=== PATIENT | female | born 1945 | race Caucasian/White ===

== ENCOUNTER 2017-08-05 19:28 | Inpatient (IN) | payer MEDICARE, OTHER ==
[~2017-08-05] VITALS: Ht 162.6 cm; Wt 69.1 kg
[~2017-08-05 19:28] MED LIST: CALC-1197 PO; CHOL10002 PO; CPM; ENOX40SY7 SUBCUT; ESTR1TAB28 PO; MAGN400C PO; OMEP-271 PO; TRAM50TA2 PO; TRAZ-143 PO; VIT B
[2017-08-05] MEDS ORDERED: aspirin 81mg tab.chew PO ONE (19:40)
[2017-08-05 19:53] LABS: BASOPHILS % (AUTO) 0.5 % (0-1); EOSINOPHILS % (AUTO) 0.6 % (0-6); HEMATOCRIT 42.2 % (35.0-45.0); HEMOGLOBIN 14.5 g/dl (12.0-16.0); LYMPHOCYTES % (AUTO) 41.2 % (21-51); MEAN CORPUSCULAR HEMOGLOBIN 31.4 PG (27.0-31.0); MEAN CORPUSCULAR HGB CONC 34.3 % (33.0-36.5); MEAN CORPUSCULAR VOLUME 91.5 FL (78-98); MEAN PLATELET VOLUME 8.3 FL (7.4-10.4); MONOCYTES # (AUTO) 0.5 X10'3 (0-0.9); MONOCYTES % (AUTO) 10.4 % (2-12); NEUTROPHILS # (AUTO) 2.3 X10'3 (1.8-7.7); NEUTROPHILS % (AUTO) 47.3 % (42-75); PLATELET COUNT 175 X10'3 (140-440); RED BLOOD COUNT 4.62 X10'6 (4.20-5.60); RED CELL DISTRIBUTION WIDTH 13.4 % (11.5-14.5); WHITE BLOOD COUNT 4.9 X10'3 (4.5-11.0)
[2017-08-05 20:06] LABS: INR 0.9 INR; PARTIAL THROMBOPLASTIN TIME 26 SECONDS (22-32); PROTHROMBIN TIME 9.8 SECONDS (9.0-12.0)
[2017-08-05 20:09] LABS: ALANINE AMINOTRANSFERASE 21 U/L (12-78); ALBUMIN 3.9 G/DL (3.4-5.0); ALBUMIN/GLOBULIN RATIO 1.2 (1.1-1.5); ALKALINE PHOSPHATASE 47 IU/L (46-116); ANION GAP 8 (8-16); ASPARTATE AMINO TRANSFERASE 19 U/L (10-37); BILIRUBIN,TOTAL 0.3 MG/DL (0.1-1.0); BLOOD UREA NITROGEN 22 MG/DL (7-18); BUN/CREATININE RATIO 16.4 (6.6-38.0); CALCIUM 8.8 MG/DL (8.5-10.1); CHLORIDE 107 MMOL/L (99-107); CREATININE 1.34 MG/DL (0.40-0.90); GLUCOSE 95 MG/DL (70-104); POTASSIUM 3.8 MMOL/L (3.5-5.1); SODIUM 141 MMOL/L (135-145); TOTAL CARBON DIOXIDE 25.7 MMOL/L (24-32); TOTAL PROTEIN 7.2 G/DL (6.4-8.2); eGFR 39 ML/MIN
[2017-08-05] MEDS ORDERED: ondansetron/PF 4mg/2ml inj IV ONE (21:00)
[2017-08-05] MEDS ORDERED: enoxaparin 100mg/ml syringe SUBCUT ONE (22:40)
[2017-08-05] MEDS ORDERED: ondansetron/PF 4mg/2ml inj IV PRN (22:40)
[2017-08-05] MEDS ORDERED: metoprolol tartrate 1mg/ml inj IV PRN (22:45)
[2017-08-05] MEDS ORDERED: regadenoson 0.4mg/5ml syringe IV ONE (22:45)
[2017-08-05] MEDS ORDERED: nitroGLYCERIN 0.4mg SUBLingual tab SL PRN (22:45)
[2017-08-05] MEDS ORDERED: aminophylline 250mg/10ml inj. IV PRN (22:45)
[2017-08-05] MEDS ORDERED: normal saline 1000ml 1,000 ML IV ONE (22:45)
[2017-08-05] MEDS ORDERED: traZODone 50mg tablet PO SCH (23:15)
[2017-08-06] VITALS (8 sets, daily range): BP systolic 123–160; BP diastolic 66–90
[2017-08-06] MEDS ORDERED: aspirin 325mg tablet PO SCH (08:30)
[2017-08-06 08:49] LABS: ANION GAP 7 (8-16); BLOOD UREA NITROGEN 17 MG/DL (7-18); BUN/CREATININE RATIO 13.7 (6.6-38.0); CALCIUM 8.2 MG/DL (8.5-10.1); CHLORIDE 111 MMOL/L (99-107); CREATININE 1.24 MG/DL (0.40-0.90); GLUCOSE 83 MG/DL (70-104); POTASSIUM 4.1 MMOL/L (3.5-5.1); SODIUM 143 MMOL/L (135-145); TOTAL CARBON DIOXIDE 24.9 MMOL/L (24-32); eGFR 43 ML/MIN
[2017-08-06 08:50] LABS: ALBUMIN 3.3 G/DL (3.4-5.0)
[2017-08-06 08:56] LABS: BASOPHILS % (AUTO) 0.6 % (0-1); HEMOGLOBIN 13.2 g/dl (12.0-16.0); LYMPHOCYTES # (AUTO) 1.2 X10'3 (1.1-4.8); LYMPHOCYTES % (AUTO) 37.5 % (21-51); MEAN CORPUSCULAR HEMOGLOBIN 30.9 PG (27.0-31.0); MEAN CORPUSCULAR HGB CONC 33.9 % (33.0-36.5); MEAN CORPUSCULAR VOLUME 91.2 FL (78-98); MEAN PLATELET VOLUME 8.6 FL (7.4-10.4); MONOCYTES # (AUTO) 0.4 X10'3 (0-0.9); MONOCYTES % (AUTO) 11.3 % (2-12); NEUTROPHILS # (AUTO) 1.6 X10'3 (1.8-7.7); NEUTROPHILS % (AUTO) 49.6 % (42-75); PLATELET COUNT 149 X10'3 (140-440); RED BLOOD COUNT 4.27 X10'6 (4.20-5.60); RED CELL DISTRIBUTION WIDTH 13.5 % (11.5-14.5); WHITE BLOOD COUNT 3.2 X10'3 (4.5-11.0)
[2017-08-06] MEDS ORDERED: regadenoson 0.4mg/5ml syringe IV ONE (09:08)
[2017-08-06] MEDS ORDERED: aminophylline inj. 0 ML IV ONE (09:08)
[2017-08-06] MEDS ORDERED: OMEP40CA37 PO (13:40)
[2017-08-06] MEDS ORDERED: CELE-193 PO (13:40)
== END 2017-08-06 14:00 | disposition home or self-care (01) | DRG 554 ==
LOC: ER 19:29 → ED HOLD 22:37 → PCU 3S 08-06 10:23
PROVIDERS: ADMIT Internal Medicine; ATTEND Family Medicine
PROC: 4A02XM4 Measurement of Cardiac Total Activity, External Approach (ICD-10-PCS; principal; 2017-08-06)
PROC: 3E073KZ Introduction of Other Diagnostic Substance into Coronary Artery, Percutaneous Approach (ICD-10-PCS; 2017-08-06)
DX: M19.012 Primary osteoarthritis, left shoulder (principal); N17.9 Acute kidney failure, unspecified; G89.29 Other chronic pain; E86.0 Dehydration; I10 Essential (primary) hypertension; N18.9 Chronic kidney disease, unspecified; J45.909 Unspecified asthma, uncomplicated; Z90.710 Acquired absence of both cervix and uterus; Z88.0 Allergy status to penicillin; Z88.6 Allergy status to analgesic agent; Z88.1 Allergy status to other antibiotic agents; Z88.8 Allergy status to other drugs, medicaments and biological substances
CPT/HCPCS: 36415; 71045; 78452; 80048; 80053; 84484; 85025; 85610; 85730; 87070; 93005; 93017; 96372; 96374; 99285; A9500; J0280; J1650; J2270; J2405; J7030

== ENCOUNTER 2017-08-18 10:01 | Inpatient (IN) | payer MEDICARE, OTHER ==
[2017-08-13 12:05] LABS: CLARITY,URINE Clear (Clear); COLOR,URINE Yellow (Yellow); GLUCOSE, URINE Negative (Neg); KETONES,URINE Negative (Neg); LEUKOCYTE ESTERASE ,URINE Negative (Neg); NITRITES, URINE Negative (Neg); OCCULT BLOOD,URINE Negative (Neg); PH,URINE 5.5 (4.8-8.0); PROTEIN,URINE Negative (Neg)
[2017-08-13 12:06] LABS: UA COLLECTION TYPE NON-SPECIFIED
[~2017-08-18] VITALS: Ht 165.1 cm; Wt 70.4 kg
[2017-08-18] VITALS (17 sets, daily range): BP systolic 96–132; BP diastolic 58–89
[~2017-08-18 10:01] MED LIST changes: +CELE-193 PO; -CPM; -ENOX40SY7 SUBCUT; -OMEP-271 PO; +OMEP40CA37 PO; -TRAZ-143 PO; +TRAZ300T2 PO; +celeCOXIB 100mg capsule PO ONE; +clindamycin-Cleocin 900mg/D5W 50 ML IV ONE; +famotidine 20mg tablet PO ONE; +gabapentin 300mg capsule PO ONE; +metoclopramide 5 mg/ml inj IV ONE; +oxyCODONE SR 10mg (sust. release) tab PO ONE; +ringers solution, lacted 1,000 ML IV SCH; +tranexamic acid inj. 1,000 MG in normal saline 100ml IV soln 90 ML IV ONE
[2017-08-18] MEDS ORDERED: DONE5TAB7 PO (11:30)
[2017-08-18] MEDS ORDERED: [UNRECOGNIZED DRUG - OTHER] (11:34)
[2017-08-18] MEDS ORDERED: COLLAGEN TYPE (11:34)
[2017-08-18] MEDS ORDERED: INSTAFLEX (11:34)
[2017-08-18] MEDS ORDERED: ROPIVAcaine 0.5% (5mg/ml) 30ml vial ONE (13:07)
[2017-08-18] MEDS ORDERED: epiNEPHrine 1 mg/ml inj ONE (13:07)
[2017-08-18] MEDS ORDERED: ketorolac trometh. 30mg/ml inj. ONE ×2 (13:07→15:19)
[2017-08-18] MEDS ORDERED: sevoflurane 250ml liquid IH ONE (13:28)
[2017-08-18] MEDS ORDERED: fentaNYL /PF 50mcg/ml 5ml ampule ONE (13:34)
[2017-08-18] MEDS ORDERED: propofol inj 20 ML IV ONE (13:45)
[2017-08-18] MEDS ORDERED: dexamethasone sod phosphate 4mg/ml inj. ONE (13:45)
[2017-08-18] MEDS ORDERED: diphenhydrAMINE 50 mg/ml inj ONE (13:46)
[2017-08-18] MEDS ORDERED: ondansetron/PF 4mg/2ml inj ONE (13:46)
[2017-08-18] MEDS ORDERED: labetalol 5mg/ml 20ml inj. IV ONE (14:13)
[2017-08-18] MEDS ORDERED: hydrALAZINE 20mg/ml inj. IV ONE (14:17)
[2017-08-18] MEDS ORDERED: ringers solution, lacted 1,000 ML IV SCH (14:19)
[2017-08-18] MEDS ORDERED: fentaNYL/PF 50MCG/1 ML 2ML syringe IV PRN (14:20)
[2017-08-18] MEDS ORDERED: ondansetron/PF 4mg/2ml inj IV PRN ×2 (14:20→16:15)
[2017-08-18] MEDS ORDERED: hydrALAZINE 20mg/ml inj. IV PRN (14:20)
[2017-08-18] MEDS ORDERED: labetalol 5mg/ml 20ml inj. IV PRN (14:20)
[2017-08-18] MEDS ORDERED: HYDROmorphone 1 mg/ml syringe IV PRN ×2 (16:15)
[2017-08-18] MEDS ORDERED: bisacodyl 10mg suppository rectal RC PRN (16:15)
[2017-08-18] MEDS ORDERED: magnesium hydroxide 30ml (MOM) UD suspension PO PRN (16:15)
[2017-08-18] MEDS ORDERED: acetaminophen 325mg tablet PO PRN (16:15)
[2017-08-18] MEDS ORDERED: diphenhydrAMINE 25mg capsule PO PRN ×2 (16:15)
[2017-08-18] MEDS: fentaNYL/PF 50MCG/1 ML 2ML syringe IV PRN ×2 (16:16→16:45)
[2017-08-18] MEDS ORDERED: CADD PCA waste documentation MC PRN (17:00)
[2017-08-18] MEDS ORDERED: naloxone 0.4 mg/ml inj IV PRN (17:00)
[2017-08-18] MEDS: HYDROmorphone/NS 1 mg/ml CADD 50 ML IV SCH ×4 (17:07→23:00)
[2017-08-18] MEDS: potassium cl 20mEq in 1/2 NS 1,000 ML IV SCH (18:11)
[2017-08-18] MEDS: ascorbic acid 500mg tablet PO SCH (20:00)
[2017-08-18] MEDS: celeCOXIB 100mg capsule PO SCH (20:00)
[2017-08-18] MEDS: oxyCODONE IR 5mg (immed. release) tablet PO SCH (20:00)
[2017-08-19] VITALS (8 sets, daily range): BP systolic 102–128; BP diastolic 65–81
[2017-08-19] MEDS: clindamycin-Cleocin 900mg/D5W 50 ML IV SCH ×3 (00:06→15:37)
[2017-08-19] MEDS: donepezil 5mg tablet PO SCH ×2 (00:13→21:00)
[2017-08-19] MEDS: sennosides 8.6mg tablet PO SCH ×2 (00:14→21:00)
[2017-08-19] MEDS: HYDROmorphone/NS 1 mg/ml CADD 50 ML IV SCH ×4 (01:00→07:00)
[2017-08-19] MEDS: potassium cl 20mEq in 1/2 NS 1,000 ML IV SCH (01:55)
[2017-08-19 06:16] LABS: BASOPHILS % (AUTO) 0.1 % (0-1); EOSINOPHILS # (AUTO) 0.1 X10'3 (0-0.9); EOSINOPHILS % (AUTO) 1.1 % (0-6); HEMATOCRIT 35.6 % (35.0-45.0); LYMPHOCYTES # (AUTO) 0.6 X10'3 (1.1-4.8); LYMPHOCYTES % (AUTO) 7.2 % (21-51); MEAN CORPUSCULAR HEMOGLOBIN 30.9 PG (27.0-31.0); MEAN CORPUSCULAR HGB CONC 33.8 % (33.0-36.5); MEAN CORPUSCULAR VOLUME 91.6 FL (78-98); MONOCYTES # (AUTO) 0.5 X10'3 (0-0.9); MONOCYTES % (AUTO) 6.4 % (2-12); NEUTROPHILS # (AUTO) 7.2 X10'3 (1.8-7.7); NEUTROPHILS % (AUTO) 85.2 % (42-75); PLATELET COUNT 145 X10'3 (140-440); RED BLOOD COUNT 3.88 X10'6 (4.20-5.60); RED CELL DISTRIBUTION WIDTH 13.3 % (11.5-14.5); WHITE BLOOD COUNT 8.5 X10'3 (4.5-11.0)
[2017-08-19] MEDS: oxyCODONE IR 5mg (immed. release) tablet PO SCH ×6 (06:35→20:40)
[2017-08-19 06:53] LABS: ANION GAP 6 (8-16); CHLORIDE 102 MMOL/L (99-107); POTASSIUM 4.3 MMOL/L (3.5-5.1); SODIUM 135 MMOL/L (135-145); TOTAL CARBON DIOXIDE 26.9 MMOL/L (24-32)
[2017-08-19] MEDS: enoxaparin 40mg/0.4ml syringe SQ SCH (07:37)
[2017-08-19] MEDS: ascorbic acid 500mg tablet PO SCH ×2 (07:38→21:03)
[2017-08-19] MEDS: pantoprazole 40mg Tablet.DR PO SCH (07:38)
[2017-08-19] MEDS: multivitamins, therapeutics tablet PO SCH (07:38)
[2017-08-19] MEDS: estradiol 1mg tablet PO SCH (07:39)
[2017-08-19] MEDS: celeCOXIB 100mg capsule PO SCH ×2 (08:21→20:50)
[2017-08-19] MEDS: oxyCODONE IR 5mg (immed. release) tablet PO PRN ×2 (09:49→21:07)
[2017-08-20] MEDS: oxyCODONE IR 5mg (immed. release) tablet PO PRN ×3 (00:46→09:25)
[2017-08-20 00:51] VITALS: BP 136/85
[2017-08-20 06:00] VITALS: BP 152/86
[2017-08-20 07:31] LABS: BASOPHILS % (AUTO) 0.2 % (0-1); EOSINOPHILS % (AUTO) 0.4 % (0-6); HEMATOCRIT 32.6 % (35.0-45.0); HEMOGLOBIN 11.6 g/dl (12.0-16.0); LYMPHOCYTES # (AUTO) 1.5 X10'3 (1.1-4.8); LYMPHOCYTES % (AUTO) 30.7 % (21-51); MEAN CORPUSCULAR HEMOGLOBIN 32.2 PG (27.0-31.0); MEAN CORPUSCULAR HGB CONC 35.5 % (33.0-36.5); MEAN CORPUSCULAR VOLUME 90.8 FL (78-98); MEAN PLATELET VOLUME 8.9 FL (7.4-10.4); MONOCYTES # (AUTO) 0.7 X10'3 (0-0.9); MONOCYTES % (AUTO) 13.4 % (2-12); NEUTROPHILS # (AUTO) 2.7 X10'3 (1.8-7.7); NEUTROPHILS % (AUTO) 55.3 % (42-75); PLATELET COUNT 120 X10'3 (140-440); RED BLOOD COUNT 3.59 X10'6 (4.20-5.60); RED CELL DISTRIBUTION WIDTH 12.9 % (11.5-14.5); WHITE BLOOD COUNT 4.9 X10'3 (4.5-11.0)
[2017-08-20] MEDS: estradiol 1mg tablet PO SCH (08:23)
[2017-08-20] MEDS: pantoprazole 40mg Tablet.DR PO SCH (08:23)
[2017-08-20] MEDS: ascorbic acid 500mg tablet PO SCH (08:24)
[2017-08-20] MEDS: enoxaparin 40mg/0.4ml syringe SQ SCH (08:24)
[2017-08-20] MEDS: multivitamins, therapeutics tablet PO SCH (08:24)
[2017-08-20] MEDS: celeCOXIB 100mg capsule PO SCH (09:25)
== END 2017-08-20 10:05 | disposition home or self-care (01) | DRG 470 ==
LOC: PAS IN 11:01 → EDSTATUS 14:00 → ORTHO 4S 17:24
PROVIDERS: ADMIT Orthopaedic Surgery; ATTEND Orthopaedic Surgery
PROC: 0SRD0J9 Replacement of Left Knee Joint with Synthetic Substitute, Cemented, Open Approach (ICD-10-PCS; principal; 2017-08-18 13:26)
DX: M17.12 Unilateral primary osteoarthritis, left knee (principal); D62 Acute posthemorrhagic anemia; N18.3 Chronic kidney disease, stage 3 (moderate); G89.4 Chronic pain syndrome; J45.909 Unspecified asthma, uncomplicated; K21.9 Gastro-esophageal reflux disease without esophagitis; R41.3 Other amnesia; Z96.651 Presence of right artificial knee joint; Z88.6 Allergy status to analgesic agent; Z88.0 Allergy status to penicillin; Z88.1 Allergy status to other antibiotic agents; Z88.8 Allergy status to other drugs, medicaments and biological substances; Z79.899 Other long term (current) drug therapy; Z79.82 Long term (current) use of aspirin
CPT/HCPCS: 36415; 73560; 80051; 81003; 85025; 86885; 86900; 86901; 87070; 97116; 97530; A6255; A6455; A7000; C1713; C1758; C1776; J0171; J0360; J1100; J1170; J1200; J1650; J1885; J2270; J2405; J2704; J2765; J2795; J3010; J3490; J7030; J7120; Q0163

== ENCOUNTER 2018-01-22 08:39 | Emergency (ER) | payer MEDICARE, OTHER ==
[~2018-01-22] VITALS: Ht 165.1 cm; Wt 68.6 kg
[~2018-01-22 08:39] MED LIST changes: -CALC-1197 PO; -CELE-193 PO; -CHOL10002 PO; +COLLAGEN TYPE; +DONE5TAB7 PO; +INSTAFLEX; -MAGN400C PO; -OMEP40CA37 PO; -VIT B; +[UNRECOGNIZED DRUG - OTHER]; -celeCOXIB 100mg capsule PO ONE; -clindamycin-Cleocin 900mg/D5W 50 ML IV ONE; -famotidine 20mg tablet PO ONE; -gabapentin 300mg capsule PO ONE; -metoclopramide 5 mg/ml inj IV ONE; -oxyCODONE SR 10mg (sust. release) tab PO ONE; -ringers solution, lacted 1,000 ML IV SCH; -tranexamic acid inj. 1,000 MG in normal saline 100ml IV soln 90 ML IV ONE
[2018-01-22 08:42] VITALS: BP 141/88
[2018-01-22] MEDS ORDERED: traMADol 50MG tablet PO ONE (10:45)
[2018-01-22] MEDS ORDERED: TRAM50TA2 PO (11:30)
== END 2018-01-22 11:48 | disposition home or self-care (01) ==
LOC: ER 08:39
DX: M75.32 Calcific tendinitis of left shoulder (principal); I10 Essential (primary) hypertension; J45.909 Unspecified asthma, uncomplicated; G89.29 Other chronic pain; Z90.710 Acquired absence of both cervix and uterus; Z98.890 Other specified postprocedural states; Z88.0 Allergy status to penicillin; Z88.8 Allergy status to other drugs, medicaments and biological substances; Z79.899 Other long term (current) drug therapy
CPT/HCPCS: 73030; 99284

== ENCOUNTER 2018-12-22 16:39 | Emergency (ER) | payer MEDICARE, OTHER ==
[~2018-12-22] VITALS: Ht 165.1 cm; Wt 79.5 kg
[2018-12-22 17:08] VITALS: BP 138/82
--- NOTE | 2018-12-22 18:40 | NUR ---
LAURA BUCIO AT BEDSIDE WITH PT
[2018-12-22] MEDS: traMADol 50MG tablet PO ONE (19:00)
== END 2018-12-22 19:47 | disposition home or self-care (01) ==
LOC: ER 16:40
DX: S82.892A Other fracture of left lower leg, initial encounter for closed fracture (principal); S83.92XA Sprain of unspecified site of left knee, initial encounter; I10 Essential (primary) hypertension; J45.909 Unspecified asthma, uncomplicated; G89.29 Other chronic pain; Z90.710 Acquired absence of both cervix and uterus; Z98.890 Other specified postprocedural states; Z88.8 Allergy status to other drugs, medicaments and biological substances; Z88.0 Allergy status to penicillin; Z88.1 Allergy status to other antibiotic agents; Z79.899 Other long term (current) drug therapy; V89.2XXA Person injured in unspecified motor-vehicle accident, traffic, initial encounter; Y93.89 Activity, other specified; Y92.89 Other specified places as the place of occurrence of the external cause; Y99.8 Other external cause status
CPT/HCPCS: 29515; 73564; 73610; 99283

== ENCOUNTER 2018-12-24 11:32 | Emergency (ER) | payer MEDICARE, OTHER ==
[~2018-12-24] VITALS: Ht 165.1 cm; Wt 72.7 kg
[2018-12-24] MEDS ORDERED: traMADol 50MG tablet PO ONE (13:40)
[2018-12-24] MEDS ORDERED: TRAM50TA2 PO (13:46)
[2018-12-24 14:12] VITALS: BP 137/74
== END 2018-12-24 14:00 | disposition home or self-care (01) ==
LOC: ER 11:33
DX: M25.572 Pain in left ankle and joints of left foot (principal); I10 Essential (primary) hypertension; J45.909 Unspecified asthma, uncomplicated; G89.29 Other chronic pain; Z90.710 Acquired absence of both cervix and uterus; Z98.890 Other specified postprocedural states; Z88.0 Allergy status to penicillin; Z88.1 Allergy status to other antibiotic agents; Z88.6 Allergy status to analgesic agent; Z88.8 Allergy status to other drugs, medicaments and biological substances; Z79.899 Other long term (current) drug therapy
CPT/HCPCS: 99283

== ENCOUNTER 2019-01-17 09:46 | Emergency (ER) | payer MEDICARE, OTHER ==
[~2019-01-17] VITALS: Ht 165.1 cm; Wt 72.7 kg
[2019-01-17 10:10] VITALS: BP 137/85
== END 2019-01-17 11:11 | disposition home or self-care (01) ==
LOC: ER 09:47
DX: D22.62 Melanocytic nevi of left upper limb, including shoulder (principal); I10 Essential (primary) hypertension; J45.909 Unspecified asthma, uncomplicated; G89.29 Other chronic pain; Z79.899 Other long term (current) drug therapy; Z88.0 Allergy status to penicillin; Z88.1 Allergy status to other antibiotic agents; Z88.4 Allergy status to anesthetic agent; Z88.6 Allergy status to analgesic agent; Z90.710 Acquired absence of both cervix and uterus; Z98.890 Other specified postprocedural states
CPT/HCPCS: 99281

== ENCOUNTER 2019-11-13 10:08 | Emergency (ER) | payer MEDICARE, BC ==
[~2019-11-13] VITALS: Ht 162.6 cm; Wt 80.0 kg
[2019-11-13 10:41] LABS: BASOPHILS % (AUTO) 0.4 % (0-1); EOSINOPHILS % (AUTO) 0.3 % (0-6); HEMATOCRIT 44.7 % (35.0-45.0); LYMPHOCYTES # (AUTO) 1.4 X10'3 (1.1-4.8); LYMPHOCYTES % (AUTO) 33.6 % (21-51); MEAN CORPUSCULAR HEMOGLOBIN 30.8 PG (27.0-31.0); MEAN CORPUSCULAR HGB CONC 33.7 g/dL (33.0-36.5); MEAN CORPUSCULAR VOLUME 91.4 FL (78-98); MEAN PLATELET VOLUME 8.6 FL (7.4-10.4); MONOCYTES # (AUTO) 0.4 X10'3 (0-0.9); NEUTROPHILS # (AUTO) 2.3 X10'3 (1.8-7.7); NEUTROPHILS % (AUTO) 55.7 % (42-75); PLATELET COUNT 160 X10'3 (140-440); RED BLOOD COUNT 4.89 X10'6 (4.20-5.60); RED CELL DISTRIBUTION WIDTH 13.9 % (11.5-14.5); WHITE BLOOD COUNT 4.1 X10'3 (4.5-11.0)
[2019-11-13 10:53] LABS: ALANINE AMINOTRANSFERASE 18 U/L (12-78); ALBUMIN 4.1 G/DL (3.4-5.0); ALBUMIN/GLOBULIN RATIO 1.2 (1.1-1.5); ALKALINE PHOSPHATASE 33 IU/L (46-116); ANION GAP 8 (8-16); ASPARTATE AMINO TRANSFERASE 24 U/L (10-37); BILIRUBIN,TOTAL 0.7 MG/DL (0.1-1.0); BLOOD UREA NITROGEN 19 MG/DL (7-18); BUN/CREATININE RATIO 15.7 (6.6-38.0); CALCIUM 9.1 MG/DL (8.5-10.1); CHLORIDE 107 MMOL/L (99-107); CREATININE 1.21 MG/DL (0.40-0.90); D-DIMER 0.59 MG/L FEU (0-0.50); GLUCOSE 85 MG/DL (70-104); POTASSIUM 3.9 MMOL/L (3.5-5.1); SODIUM 141 MMOL/L (135-145); TOTAL CARBON DIOXIDE 26.4 MMOL/L (24-32); TOTAL PROTEIN 7.4 G/DL (6.4-8.2); eGFR 43 ML/MIN
[2019-11-13] MEDS ORDERED: iohexol 350MG/ML 100ml bottle IV ONE (11:09)
[2019-11-13] MEDS ORDERED: normal saline 1000ML IV soln IVB ONE (11:35)
[2019-11-13 14:35] VITALS: BP 156/106
== END 2019-11-13 14:44 | disposition home or self-care (01) ==
LOC: ER 10:08
DX: R07.89 Other chest pain (principal); R53.83 Other fatigue; I10 Essential (primary) hypertension; J45.909 Unspecified asthma, uncomplicated; G89.29 Other chronic pain; Z90.710 Acquired absence of both cervix and uterus; Z98.890 Other specified postprocedural states; Z88.0 Allergy status to penicillin; Z88.1 Allergy status to other antibiotic agents; Z88.6 Allergy status to analgesic agent; Z88.8 Allergy status to other drugs, medicaments and biological substances; Z79.899 Other long term (current) drug therapy
CPT/HCPCS: 36415; 71045; 71275; 80053; 84484; 85025; 85379; 93005; 99285; J7030; Q9967

== ENCOUNTER 2019-11-15 05:47 | Observation (INO) | payer MEDICARE, BC ==
[2019-11-15] VITALS (12 sets, daily range): BP systolic 134–180; BP diastolic 77–97
[~2019-11-15] VITALS: Ht 163.8 cm; Wt 75.0 kg
[2019-11-15] MEDS ORDERED: CELE-193 PO (06:03)
[2019-11-15] MEDS ORDERED: OMEP40CA13 PO (06:04)
[2019-11-15] MEDS ORDERED: MAGN400C PO (06:04)
[2019-11-15] MEDS ORDERED: potassium PO (06:05)
[2019-11-15 06:17] LABS: BASOPHILS % (AUTO) 0.8 % (0-1); EOSINOPHILS % (AUTO) 0.7 % (0-6); HEMATOCRIT 42.2 % (35.0-45.0); HEMOGLOBIN 14.2 g/dl (12.0-16.0); LYMPHOCYTES # (AUTO) 1.8 X10'3 (1.1-4.8); LYMPHOCYTES % (AUTO) 46.2 % (21-51); MEAN CORPUSCULAR HEMOGLOBIN 30.8 PG (27.0-31.0); MEAN CORPUSCULAR HGB CONC 33.7 g/dL (33.0-36.5); MEAN CORPUSCULAR VOLUME 91.3 FL (78-98); MEAN PLATELET VOLUME 8.2 FL (7.4-10.4); MONOCYTES # (AUTO) 0.5 X10'3 (0-0.9); MONOCYTES % (AUTO) 11.8 % (2-12); NEUTROPHILS # (AUTO) 1.6 X10'3 (1.8-7.7); NEUTROPHILS % (AUTO) 40.5 % (42-75); PLATELET COUNT 138 X10'3 (140-440); RED BLOOD COUNT 4.62 X10'6 (4.20-5.60); RED CELL DISTRIBUTION WIDTH 13.6 % (11.5-14.5); WHITE BLOOD COUNT 3.9 X10'3 (4.5-11.0)
[2019-11-15 06:35] LABS: ALANINE AMINOTRANSFERASE 19 U/L (12-78); ALBUMIN 3.6 G/DL (3.4-5.0); ALBUMIN/GLOBULIN RATIO 1.2 (1.1-1.5); ALKALINE PHOSPHATASE 30 IU/L (46-116); ANION GAP 9 (8-16); ASPARTATE AMINO TRANSFERASE 19 U/L (10-37); BILIRUBIN,TOTAL 0.5 MG/DL (0.1-1.0); BLOOD UREA NITROGEN 20 MG/DL (7-18); BUN/CREATININE RATIO 16.7 (6.6-38.0); CALCIUM 8.8 MG/DL (8.5-10.1); CHLORIDE 106 MMOL/L (99-107); GLUCOSE 93 MG/DL (70-104); POTASSIUM 3.9 MMOL/L (3.5-5.1); SODIUM 140 MMOL/L (135-145); TOTAL CARBON DIOXIDE 24.9 MMOL/L (24-32); TOTAL PROTEIN 6.7 G/DL (6.4-8.2); eGFR 44 ML/MIN
[2019-11-15] MEDS: normal saline 1000ml 1,000 ML IV SCH ×2 (07:33→20:26)
[2019-11-15] MEDS ORDERED: aspirin 81mg tab.chew PO ONE (07:35)
[2019-11-15] MEDS ORDERED: morphine 2 MG/ML inj. syringe IV PRN ×2 (07:35)
[2019-11-15] MEDS ORDERED: metoprolol tartrate 1mg/ml inj IV PRN (07:35)
[2019-11-15] MEDS ORDERED: magnesium hydroxide 30ml (MOM) UD suspension PO PRN (07:35)
[2019-11-15] MEDS ORDERED: aminophylline 250mg/10ml inj. IV PRN (07:35)
[2019-11-15] MEDS ORDERED: nitroGLYCERIN 0.4mg SUBLingual tab SL PRN (07:35)
[2019-11-15] MEDS ORDERED: mag hydrox/Alum hydrox/simeth 30ml oral suspension PO PRN (07:35)
[2019-11-15] MEDS ORDERED: enoxaparin 100mg/ml syringe SUBCUT ONE (07:35)
[2019-11-15] MEDS ORDERED: ondansetron/PF 4mg/2ml inj IV PRN (07:35)
[2019-11-15] MEDS ORDERED: regadenoson 0.4mg/5ml syringe IV ONE (07:35)
[2019-11-15] MEDS ORDERED: acetaminophen 325mg tablet PO PRN (07:35)
[2019-11-15] MEDS: heparin, porcine 5000 units/ml vial SQ SCH ×2 (08:00→20:26)
[2019-11-15] MEDS ORDERED: AMIT25TA9 PO (08:03)
--- NOTE | 2019-11-15 08:37 | NUR ---
Patient in room ED 16. I have received report from Sam in ED RN and had the opportunity to ask questions and assume patient care.
--- NOTE | 2019-11-15 09:45 | NUR ---
I spoke to Dr. Baker and he said to only give the Lovenox not the heparin and the 324mg of aspirin. The patient said she took 2 full strength aspirin at 0330 this morning.
[2019-11-15] MEDS: pantoprazole 40mg Tablet.DR PO SCH (16:37)
--- NOTE | 2019-11-15 18:19 | NUR ---
Problems reprioritized. Patient report given, questions answered & plan of care reviewed with Elio RN.
--- NOTE | 2019-11-15 18:33 | NUR ---
Patient in room PCU 3014. I have received report from Edilma VALDEZ and had the opportunity to ask questions and assume patient care.
[2019-11-15] MEDS ORDERED: docusate sod 100mg capsule PO SCH (20:00)
--- NOTE | 2019-11-15 20:07 | NUR ---
Dr Tobin. PAGER ID: [phone] MESSAGE: Sue Terrence 14A, chest pain. Liane Scan Negative, troponins Negative. Asking for pain medication. Only has morphine ordered. Normally takes 650 mg Aspirin at home before bed for knee pain. Has allergies to Tylenol and ibuprofen. Elio [id number]
[2019-11-15] MEDS ORDERED: aspirin 325mg tablet PO ONE (20:15)
[2019-11-15] MEDS: diatr meglu/diatrizoate 30ml oral sol.-(3 dose) bottle PO SCH (20:25)
[2019-11-15] MEDS: magnesium oxide 400mg tablet PO SCH (20:26)
[2019-11-15] MEDS ORDERED: traZODone 50mg tablet PO SCH (21:00)
[2019-11-16 02:00] VITALS: BP 121/67
[2019-11-16] MEDS: normal saline 1000ml 1,000 ML IV SCH ×2 (03:33→05:47)
[2019-11-16 05:58] LABS: BASOPHILS % (AUTO) 0.9 % (0-1); EOSINOPHILS % (AUTO) 0.5 % (0-6); HEMATOCRIT 39.5 % (35.0-45.0); HEMOGLOBIN 13.5 g/dl (12.0-16.0); LYMPHOCYTES # (AUTO) 1.4 X10'3 (1.1-4.8); LYMPHOCYTES % (AUTO) 46.8 % (21-51); MEAN CORPUSCULAR HGB CONC 34.2 g/dL (33.0-36.5); MEAN CORPUSCULAR VOLUME 90.7 FL (78-98); MEAN PLATELET VOLUME 8.7 FL (7.4-10.4); MONOCYTES # (AUTO) 0.3 X10'3 (0-0.9); MONOCYTES % (AUTO) 9.8 % (2-12); NEUTROPHILS # (AUTO) 1.3 X10'3 (1.8-7.7); PLATELET COUNT 144 X10'3 (140-440); RED BLOOD COUNT 4.36 X10'6 (4.20-5.60); RED CELL DISTRIBUTION WIDTH 13.3 % (11.5-14.5); WHITE BLOOD COUNT 3.1 X10'3 (4.5-11.0)
[2019-11-16 06:00] VITALS: BP 141/81
[2019-11-16 06:09] LABS: ALBUMIN 3.2 G/DL (3.4-5.0); ANION GAP 9 (8-16); BLOOD UREA NITROGEN 16 MG/DL (7-18); BUN/CREATININE RATIO 15.5 (6.6-38.0); CALCIUM 8.4 MG/DL (8.5-10.1); CHLORIDE 111 MMOL/L (99-107); CREATININE 1.03 MG/DL (0.40-0.90); GLUCOSE 93 MG/DL (70-104); SODIUM 143 MMOL/L (135-145); TOTAL CARBON DIOXIDE 22.9 MMOL/L (24-32); eGFR 52 ML/MIN
--- NOTE | 2019-11-16 06:12 | NUR ---
Patient in room PCU 3014A. I have received report from Elio VALDEZ and had the opportunity to ask questions and assume patient care. Patient laying in bed, eyes closed, no signs of distress, will continue to monitor.
--- NOTE | 2019-11-16 06:19 | NUR ---
Problems reprioritized. Patient report given, questions answered & plan of care reviewed with Belem VALDEZ .
[2019-11-16] MEDS ORDERED: pantoprazole 40mg Tablet.DR PO SCH (07:30)
[2019-11-16] MEDS ORDERED: estradiol 1mg tablet PO SCH (08:00)
[2019-11-16] MEDS ORDERED: POTASSIUM 595 MG PO SCH (08:00)
[2019-11-16] MEDS: pantoprazole 40mg Tablet.DR PO SCH (08:03)
[2019-11-16] MEDS: magnesium oxide 400mg tablet PO SCH (08:03)
[2019-11-16] MEDS: diatr meglu/diatrizoate 30ml oral sol.-(3 dose) bottle PO SCH ×2 (08:04→09:15)
[2019-11-16] MEDS: heparin, porcine 5000 units/ml vial SQ SCH (08:04)
[2019-11-16] MEDS ORDERED: iohexol 300mg/ml 100ml inj. ONE (09:10)
--- NOTE | 2019-11-16 09:22 | NUR ---
Patient transported down to CT scan by CT personnel
[2019-11-16 11:00] VITALS: BP 154/95
--- NOTE | 2019-11-16 11:12 | NUR ---
PAGER ID: [phone] MESSAGE: Belem thompson [phone]. RE Sample, W. 3014A. Saw order for discharge. Patient is requesting to speak to MD prior to discharge. Please see when possible. Thanks!
[2019-11-16] MEDS ORDERED: NITR0.4T51 SL (13:08)
[2019-11-16] MEDS ORDERED: PANT-47 PO (13:08)
--- NOTE | 2019-11-16 14:47 | NUR ---
Per MD order by Dr. Baker, patient is stable for discharge home. Discharge packet printed and reviewed with the patient. New prescriptions sent to pharmacy of choice. IV removed with cannula intact, tele monitor removed. All questions answered. All belongings sent with patient. Patient ambulatory with staff off unit and to waiting family for transport home.
== END 2019-11-16 15:05 | disposition home or self-care (01) ==
LOC: ER 05:47 → ED HOLD 07:37 → PCU 3S 08:50
PROVIDERS: ADMIT Family Medicine; ATTEND Family Medicine
DX: R09.1 Pleurisy (principal); R07.89 Other chest pain; R10.11 Right upper quadrant pain; J45.909 Unspecified asthma, uncomplicated; M19.90 Unspecified osteoarthritis, unspecified site; G47.9 Sleep disorder, unspecified; I10 Essential (primary) hypertension; Z90.710 Acquired absence of both cervix and uterus; Z79.899 Other long term (current) drug therapy; Z88.0 Allergy status to penicillin; Z88.1 Allergy status to other antibiotic agents; Z88.6 Allergy status to analgesic agent; Z88.8 Allergy status to other drugs, medicaments and biological substances
CPT/HCPCS: 36415; 71045; 74177; 78452; 80048; 80053; 84484; 85025; 87081; 93005; 93017; 96372; 99285; A9500; G0378; J1644; J2785; J7030; Q9963; Q9967; J1650

== ENCOUNTER 2020-01-02 05:00 | Day surgery (SDC) | payer MEDICARE, BC ==
[2019-12-28 15:59] LABS: ALBUMIN 3.8 G/DL (3.4-5.0); ANION GAP 13 (8-16); BLOOD UREA NITROGEN 26 MG/DL (7-18); BUN/CREATININE RATIO 17.8 (6.6-38.0); CALCIUM 8.7 MG/DL (8.5-10.1); CHLORIDE 106 MMOL/L (99-107); CREATININE 1.46 MG/DL (0.40-0.90); GLUCOSE 128 MG/DL (70-104); POTASSIUM 3.4 MMOL/L (3.5-5.1); SODIUM 143 MMOL/L (135-145); eGFR 35 ML/MIN
[2019-12-28 16:04] LABS: PARTIAL THROMBOPLASTIN TIME 27 SECONDS (22-32)
[2019-12-28 16:07] LABS: HEMOGLOBIN 14.3 g/dl (12.0-16.0); MEAN CORPUSCULAR HEMOGLOBIN 31.1 PG (27.0-31.0); MEAN CORPUSCULAR VOLUME 92.2 FL (78-98); WHITE BLOOD COUNT 5.3 X10'3 (4.5-11.0)
[2019-12-28 16:09] LABS: BASOPHILS % (AUTO) 0.6 % (0-1); EOSINOPHILS % (AUTO) 0.3 % (0-6); HEMATOCRIT 42.4 % (35.0-45.0); LYMPHOCYTES # (AUTO) 1.6 X10'3 (1.1-4.8); MEAN CORPUSCULAR HGB CONC 33.8 g/dL (33.0-36.5); MEAN PLATELET VOLUME 9.1 FL (7.4-10.4); MONOCYTES # (AUTO) 0.5 X10'3 (0-0.9); MONOCYTES % (AUTO) 8.9 % (2-12); NEUTROPHILS # (AUTO) 3.2 X10'3 (1.8-7.7); NEUTROPHILS % (AUTO) 60.2 % (42-75); PLATELET COUNT 191 X10'3 (140-440); RED CELL DISTRIBUTION WIDTH 14.1 % (11.5-14.5)
[2019-12-28 16:43] LABS: TOTAL CELLS COUNTED 100
[2019-12-28 16:44] LABS: PLATELET ESTIMATE NORMAL
[~2020-01-02] VITALS: Ht 165.1 cm; Wt 76.9 kg
[2020-01-02] VITALS (13 sets, daily range): BP systolic 129–182; BP diastolic 76–95
[~2020-01-02 05:00] MED LIST changes: -COLLAGEN TYPE; -DONE5TAB7 PO; -INSTAFLEX; +MAGN400C PO; +PANT-47 PO; -TRAM50TA2 PO; -[UNRECOGNIZED DRUG - OTHER]; +potassium PO
[2020-01-02] MEDS ORDERED: diphenhydrAMINE 25mg capsule PO PRN (05:15)
[2020-01-02] MEDS ORDERED: LORazepam 0.5 MG tablet PO PRN (05:15)
[2020-01-02] MEDS ORDERED: normal saline 1,000 ML IV SCH (05:15)
[2020-01-02] MEDS ORDERED: ASPI-611 PO (05:25)
[2020-01-02] MEDS ORDERED: NITR0.4T48 SL (05:25)
[2020-01-02] MEDS ORDERED: CELE-193 PO (05:25)
[2020-01-02] MEDS ORDERED: CHOL10008 PO (05:25)
[2020-01-02] MEDS ORDERED: OMEP40CA13 PO (05:25)
[2020-01-02] MEDS ORDERED: TRAM50TA2 PO (05:25)
[2020-01-02] MEDS ORDERED: midazolam 2 mg/2 ml injection ONE ×2 (06:01→06:34)
[2020-01-02] MEDS ORDERED: fentaNYL/PF 50MCG/1 ML 2ML syringe ONE (06:02)
[2020-01-02] MEDS ORDERED: iohexol 350MG/ML 100ml bottle IV ONE (06:02)
[2020-01-02] MEDS ORDERED: verapamil 2.5 mg/ml inj IV ONE (06:25)
[2020-01-02] MEDS ORDERED: nitroGLYCERIN-Tridil 50MG/D5W 250 ML IV ONE (06:25)
[2020-01-02] MEDS ORDERED: heparin 1,000unit/ml 10ml vial 10 ML ONE ×2 (06:25→06:43)
[2020-01-02] MEDS ORDERED: iohexol 350 MG/ML 50ML vial IV ONE (06:43)
[2020-01-02] MEDS ORDERED: ticagrelor 90mg tablet ONE (06:57)
[2020-01-02] MEDS ORDERED: proCHLORperazine 10 MG/2 ml inj IV PRN (07:40)
[2020-01-02] MEDS ORDERED: ondansetron/PF 4mg/2ml inj IV PRN (07:40)
[2020-01-02] MEDS ORDERED: nitroGLYCERIN 0.4mg SUBLingual tab SL PRN (07:40)
[2020-01-02] MEDS ORDERED: OXAZEpam 15mg capsule PO PRN (07:40)
--- NOTE | 2020-01-02 08:11 | NUR ---
pt easy to arouse, denies pain, states she is cold, brought pt a warm blanket. vs stable as charted. compression band on.
[2020-01-02] MEDS ORDERED: hydrALAZINE 20mg/ml inj. IV ONE (09:25)
--- NOTE | 2020-01-02 09:25 | NUR ---
while releasing air out of vascular band site began to bleed. replaced 2ml air in wrist band. held pressure to site of hematoma for 10 min. no s/s of bleeding. hematoma documented. Called MD. new orders given. Called microbiology lab analyst, spoke with Hiram VALDEZ and Lizzie VALDEZ. for RN from that department to check vasc. band position, per MD. Waiting on microbiology lab analyst. pt sitting up in bed. drinking water.
[2020-01-02] MEDS ORDERED: traMADol 50MG tablet PO PRN (09:40)
--- NOTE | 2020-01-02 09:45 | NUR ---
Rahat VALDEZ and Gianna VALDEZ at bedside to evaluate radial site band.
--- NOTE | 2020-01-02 09:55 | NUR ---
vascular band in place. no s/s of bleeding site of hematoma is now soft to touch. No s/s of bleeding. will continue to monitor.
--- NOTE | 2020-01-02 10:50 | NUR ---
called to update MD on patient conditions. BP 159/91 HR 109 Spo2 98% on RA. pt was straight cath with 1 liter of yellow urine out. pt states pain in her rt leg, unable to describe. Medications have been given as ordered. pt states, "I can't do this", she is unable to explain her statements. Pt calms intermittently then states she needs "to get up", "I need to get out of here, I'm not gonna make it". sitting pt up in bed she states, "I'm dizzy, I need to go back down". Pt in lying position now. VS stable as charted. New order for EKG. done at bedside. Will continue to monitor. Addendum: 01/02/20 at 1545 by Sharonda Sawyer RN Correction pain was in pt left leg.
--- NOTE | 2020-01-02 11:02 | NUR ---
pt appears to be resting , eyes closed, even respirations. will continue to monitor.
--- NOTE | 2020-01-02 13:00 | NUR ---
pt vascular band removed. no s/s of bleeding or infection. Educated pt on bruising of rt forearm, she verbalized understanding of hematoma and potential soreness at site. educated pt on no lifting over 10lbs for one week.She can removed dressing after 24 hours. will continue to monitor.
--- NOTE | 2020-01-02 13:30 | NUR ---
ambulated pt on floor, pt denies pain , denies sob. pt site stable, no s/s of bleeding. pt back in bed. will contact family for discharge.
[2020-01-02] MEDS ORDERED: CYCL-1 PO (16:24)
== END 2020-01-02 14:25 | disposition home or self-care (01) ==
LOC: SSTAY O 05:00
PROVIDERS: ATTEND Internal Medicine Interventional Cardiology
DX: R07.2 Precordial pain (principal); I25.10 Atherosclerotic heart disease of native coronary artery without angina pectoris; J45.909 Unspecified asthma, uncomplicated; Z79.899 Other long term (current) drug therapy; Z79.82 Long term (current) use of aspirin; Z88.8 Allergy status to other drugs, medicaments and biological substances; Z88.0 Allergy status to penicillin; Z79.01 Long term (current) use of anticoagulants
CPT/HCPCS: 36415; 80048; 85025; 85610; 85730; 93005; 93458; 99152; 99153; C1769; C1874; C1894; C9600; J0360; J1644; J2250; J2405; J3010; J7030; Q0163; Q9967; A4620; A5120; A6258; C1751; J3490

== ENCOUNTER 2020-01-02 14:41 | Emergency (ER) | payer MEDICARE, BC ==
[~2020-01-02] VITALS: Ht 165.1 cm; Wt 72.7 kg
[~2020-01-02 14:41] MED LIST changes: +ASPI-611 PO; +CELE-193 PO; +CHOL10008 PO; +NITR0.4T48 SL; +OMEP40CA13 PO; +TRAM50TA2 PO
--- NOTE | 2020-01-02 15:10 | NUR ---
Smiley castillo in [facility] - 01/02/20 at 1623 by SHANE pt assited to [email or web address] at this time urine sample collected.
--- NOTE | 2020-01-02 15:15 | NUR ---
Smiley castillo in ED - 01/02/20 at 1623 by SHANE lisy marcus and residential air sealing technician at bedside.history and phiscal assesment done.
[2020-01-02 15:20] LABS: BASOPHILS % (AUTO) 0.4 % (0-1); EOSINOPHILS % (AUTO) 0 % (0-6); HEMOGLOBIN 14.5 g/dl (12.0-16.0); LYMPHOCYTES # (AUTO) 0.5 X10'3 (1.1-4.8); LYMPHOCYTES % (AUTO) 6.3 % (21-51); MEAN CORPUSCULAR HEMOGLOBIN 31.8 PG (27.0-31.0); MEAN CORPUSCULAR HGB CONC 34.6 g/dL (33.0-36.5); MEAN CORPUSCULAR VOLUME 91.9 FL (78-98); MEAN PLATELET VOLUME 8.3 FL (7.4-10.4); MONOCYTES # (AUTO) 0.5 X10'3 (0-0.9); MONOCYTES % (AUTO) 5.6 % (2-12); NEUTROPHILS # (AUTO) 7.7 X10'3 (1.8-7.7); NEUTROPHILS % (AUTO) 87.7 % (42-75); PLATELET COUNT 176 X10'3 (140-440); RED BLOOD COUNT 4.57 X10'6 (4.20-5.60); RED CELL DISTRIBUTION WIDTH 14.2 % (11.5-14.5); WHITE BLOOD COUNT 8.7 X10'3 (4.5-11.0)
[2020-01-02 15:36] LABS: ALANINE AMINOTRANSFERASE 27 U/L (12-78); ALBUMIN 3.7 G/DL (3.4-5.0); ALBUMIN/GLOBULIN RATIO 1.2 (1.1-1.5); ALKALINE PHOSPHATASE 27 IU/L (46-116); ANION GAP 10 (8-16); ASPARTATE AMINO TRANSFERASE 29 U/L (10-37); BLOOD UREA NITROGEN 12 MG/DL (7-18); BUN/CREATININE RATIO 10.3 (6.6-38.0); CALCIUM 9.2 MG/DL (8.5-10.1); CHLORIDE 105 MMOL/L (99-107); CREATININE 1.16 MG/DL (0.40-0.90); GLUCOSE 99 MG/DL (70-104); POTASSIUM 3.7 MMOL/L (3.5-5.1); SODIUM 138 MMOL/L (135-145); TOTAL CARBON DIOXIDE 22.8 MMOL/L (24-32); TOTAL PROTEIN 6.7 G/DL (6.4-8.2); eGFR 46 ML/MIN
[2020-01-02] MEDS ORDERED: ondansetron/PF 4mg/2ml inj IV ONE (16:15)
--- NOTE | 2020-01-02 16:21 | NUR ---
pt refused the nausea med as per pt she is not nauseated at this time also stated that she wants to go home ,notified the provider shaan wasserman.okay to send pt with bp of 172/94.
[2020-01-02] MEDS ORDERED: CYCL-1 PO (16:24)
[2020-01-02 16:42] VITALS: BP 155/95
== END 2020-01-02 16:44 | disposition home or self-care (01) ==
LOC: ER 14:42
DX: T82.848A Pain due to vascular prosthetic devices, implants and grafts, initial encounter (principal); M79.18 Myalgia, other site; M54.2 Cervicalgia; I10 Essential (primary) hypertension; J45.909 Unspecified asthma, uncomplicated; G89.29 Other chronic pain; Z90.710 Acquired absence of both cervix and uterus; Z98.890 Other specified postprocedural states; Z88.0 Allergy status to penicillin; Z88.8 Allergy status to other drugs, medicaments and biological substances; Z79.82 Long term (current) use of aspirin; Z79.899 Other long term (current) drug therapy; Y84.0 Cardiac catheterization as the cause of abnormal reaction of the patient, or of later complication, without mention of misadventure at the time of the procedure; Y92.89 Other specified places as the place of occurrence of the external cause
CPT/HCPCS: 36415; 71045; 80053; 85025; 85379; 93005; 99285

== ENCOUNTER 2020-01-18 17:53 | Emergency (ER) | payer MEDICARE, BC ==
[~2020-01-18] VITALS: Ht 165.1 cm; Wt 75.5 kg
[~2020-01-18 17:53] MED LIST changes: +CYCL-1 PO; -MAGN400C PO; -PANT-47 PO
[2020-01-18] MEDS ORDERED: diphenhydrAMINE 25mg capsule PO ONE (18:15)
[2020-01-18] MEDS ORDERED: famotidine 20mg tablet PO ONE (18:15)
[2020-01-18] MEDS ORDERED: predniSONE 20 mg tablet PO ONE (18:15)
[2020-01-18] MEDS ORDERED: EPIN0.3P3 IM (19:12)
[2020-01-18] MEDS ORDERED: PRED20TA PO (19:12)
[2020-01-18 19:26] VITALS: BP 150/91
== END 2020-01-18 19:27 | disposition home or self-care (01) ==
LOC: ER 17:53
DX: T63.444A Toxic effect of venom of bees, undetermined, initial encounter (principal); T78.40XA Allergy, unspecified, initial encounter; I10 Essential (primary) hypertension; J45.909 Unspecified asthma, uncomplicated; G89.29 Other chronic pain; Z90.710 Acquired absence of both cervix and uterus; Z98.890 Other specified postprocedural states; Z88.6 Allergy status to analgesic agent; Z88.1 Allergy status to other antibiotic agents; Z88.0 Allergy status to penicillin; Z88.8 Allergy status to other drugs, medicaments and biological substances; Z79.82 Long term (current) use of aspirin; Z79.899 Other long term (current) drug therapy
CPT/HCPCS: 99284; J7512; Q0163

== ENCOUNTER 2021-09-03 10:24 | Outpatient (CLI) | payer OTHER ==
[~2021-09-03 10:24] MED LIST changes: +EPIN0.3P3 IM; -OMEP40CA13 PO; +OMEP40CA21 PO
== END 2021-09-03 23:59 | disposition home or self-care (01) ==
LOC: CARD DIAG 10:24
DX: I05.8 Other rheumatic mitral valve diseases (principal); I10 Essential (primary) hypertension; J45.909 Unspecified asthma, uncomplicated; Z95.5 Presence of coronary angioplasty implant and graft
CPT/HCPCS: 93306

== ENCOUNTER 2022-05-10 20:24 | Emergency (ER) | payer OTHER ==
[~2022-05-10] VITALS: Ht 162.6 cm; Wt 70.5 kg
--- NOTE | 2022-05-10 22:10 | NUR ---
Pt went to CT, no stress noted
--- NOTE | 2022-05-10 22:41 | NUR ---
Pt came back from CT, RN did straight cath since pt had full bladder and couldn't tolerate bedpan
[2022-05-10] MEDS ORDERED: traMADol 50MG tablet PO ONE (22:55)
[2022-05-10] MEDS ORDERED: orphenadrine citrate 60mg/2ml inj. IM ONE (23:15)
[2022-05-10] MEDS ORDERED: fentaNYL/PF 50MCG/1 ML 2ML syringe IV ONE (23:15)
[2022-05-10] MEDS ORDERED: CYCL-1 PO (23:17)
[2022-05-11 00:01] VITALS: BP 152/97
== END 2022-05-11 00:03 | disposition home or self-care (01) ==
LOC: ER 20:25
DX: M79.18 Myalgia, other site (principal); R11.0 Nausea; I10 Essential (primary) hypertension; J45.909 Unspecified asthma, uncomplicated; G89.29 Other chronic pain; Z90.710 Acquired absence of both cervix and uterus; Z98.890 Other specified postprocedural states; Z88.0 Allergy status to penicillin; Z88.1 Allergy status to other antibiotic agents; Z88.6 Allergy status to analgesic agent; Z79.82 Long term (current) use of aspirin; Z79.899 Other long term (current) drug therapy; W19.XXXA Unspecified fall, initial encounter; Y93.89 Activity, other specified; Y92.89 Other specified places as the place of occurrence of the external cause; Y99.8 Other external cause status
CPT/HCPCS: 70450; 72125; 72131; 96372; 96374; 99284; J2360; J3010; A6258

== ENCOUNTER 2022-09-30 07:12 | Emergency (ER) | payer BC, OTHER ==
[~2022-09-30] VITALS: Ht 165.1 cm; Wt 74.5 kg
[2022-09-30 07:15] VITALS: BP 184/80
[2022-09-30] MEDS ORDERED: traMADol 50MG tablet PO ONE (09:50)
== END 2022-09-30 10:12 | disposition home or self-care (01) ==
LOC: ER 07:12
DX: S42.021A Displaced fracture of shaft of right clavicle, initial encounter for closed fracture (principal); I10 Essential (primary) hypertension; J45.909 Unspecified asthma, uncomplicated; G89.29 Other chronic pain; Z90.710 Acquired absence of both cervix and uterus; Z98.890 Other specified postprocedural states; Z88.0 Allergy status to penicillin; Z88.1 Allergy status to other antibiotic agents; Z79.899 Other long term (current) drug therapy; Z79.82 Long term (current) use of aspirin; W01.0XXA Fall on same level from slipping, tripping and stumbling without subsequent striking against object, initial encounter; Y93.89 Activity, other specified; Y92.89 Other specified places as the place of occurrence of the external cause; Y99.8 Other external cause status
CPT/HCPCS: 73030; 99283

== ENCOUNTER 2023-02-25 09:48 | Emergency (ER) | payer BC ==
[~2023-02-25] VITALS: Ht 162.6 cm; Wt 75.0 kg
[~2023-02-25 09:48] MED LIST changes: +ASPI-1071 PO; -ASPI-611 PO; +ATOR20TA PO; -CELE-193 PO; -CHOL10008 PO; +CLOP75TA34 PO; -CYCL-1 PO; -EPIN0.3P3 IM; +ESTR1TAB19 PO; -ESTR1TAB28 PO; +METO-395 PO; -NITR0.4T48 SL; +NITR0.4T51 SL; -OMEP40CA21 PO; +PANT40TA54 PO; -TRAZ300T2 PO; -potassium PO
[2023-02-25 10:08] VITALS: BP 150/91; PULSE 81; RESP 16; TEMP 98.1; O2SAT 97
== END 2023-02-25 11:37 | disposition home or self-care (01) ==
LOC: ER 09:49
DX: T80.1XXA Vascular complications following infusion, transfusion and therapeutic injection, initial encounter (principal); I11.0 Hypertensive heart disease with heart failure; J45.909 Unspecified asthma, uncomplicated; G89.29 Other chronic pain; Z98.890 Other specified postprocedural states; Z88.0 Allergy status to penicillin; Z88.8 Allergy status to other drugs, medicaments and biological substances; Z79.899 Other long term (current) drug therapy; Z88.6 Allergy status to analgesic agent
CPT/HCPCS: 99281

== ENCOUNTER 2023-03-01 10:25 | Emergency (ER) | payer BC ==
[~2023-03-01] VITALS: Ht 162.6 cm; Wt 72.7 kg
[2023-03-01 10:56] VITALS: TEMP 98.3
[2023-03-01 12:16] VITALS: BP 124/69; PULSE 61; RESP 19; O2SAT 97
[2023-03-01 13:00] LABS: BASOPHILS % (AUTO) 0.4 % (0-1); EOSINOPHILS % (AUTO) 0.1 % (0-6); HEMATOCRIT 40.6 % (35.0-45.0); HEMOGLOBIN 13.8 g/dl (12.0-16.0); LYMPHOCYTES # (AUTO) 0.5 X10'3 (1.1-4.8); LYMPHOCYTES % (AUTO) 7.7 % (21-51); MEAN CORPUSCULAR HEMOGLOBIN 29.7 PG (27.0-31.0); MEAN CORPUSCULAR VOLUME 87.3 FL (78-98); MEAN PLATELET VOLUME 8.4 FL (7.4-10.4); MONOCYTES # (AUTO) 0.9 X10'3 (0-0.9); MONOCYTES % (AUTO) 12.8 % (2-12); NEUTROPHILS # (AUTO) 5.6 X10'3 (1.8-7.7); PLATELET COUNT 183 X10'3 (140-440); RED BLOOD COUNT 4.65 X10'6 (4.20-5.60); RED CELL DISTRIBUTION WIDTH 15.1 % (11.5-14.5)
[2023-03-01 13:19] LABS: ALANINE AMINOTRANSFERASE 19 U/L (12-78); ALBUMIN 3.2 G/DL (3.4-5.0); ALBUMIN/GLOBULIN RATIO 0.8 (1.1-1.5); ALKALINE PHOSPHATASE 44 IU/L (46-116); ANION GAP 10 (8-16); ASPARTATE AMINO TRANSFERASE 23 U/L (10-37); BILIRUBIN,TOTAL 0.5 MG/DL (0.1-1.0); BLOOD UREA NITROGEN 17 MG/DL (7-18); BUN/CREATININE RATIO 13.4 (10.0-20.0); CHLORIDE 97 MMOL/L (99-107); CREATININE 1.27 MG/DL (0.40-0.90); GLUCOSE 97 MG/DL (70-104); POTASSIUM 4.6 MMOL/L (3.5-5.1); SODIUM 130 MMOL/L (135-145); TOTAL CARBON DIOXIDE 23.5 MMOL/L (24-32); TOTAL PROTEIN 7.2 G/DL (6.4-8.2); eGFR 41 ML/MIN
[2023-03-01] MEDS ORDERED: CLIN150C2 PO (13:46)
== END 2023-03-01 14:02 | disposition home or self-care (01) ==
LOC: ER 10:26
DX: L03.113 Cellulitis of right upper limb (principal); J45.909 Unspecified asthma, uncomplicated; I10 Essential (primary) hypertension; Z88.0 Allergy status to penicillin; Z88.1 Allergy status to other antibiotic agents; Z88.4 Allergy status to anesthetic agent; Z88.6 Allergy status to analgesic agent; Z91.030 Bee allergy status; Z79.82 Long term (current) use of aspirin; Z79.2 Long term (current) use of antibiotics; Z79.899 Other long term (current) drug therapy; Z90.710 Acquired absence of both cervix and uterus
CPT/HCPCS: 36415; 80053; 84145; 85025; 99283

== ENCOUNTER 2023-03-06 07:23 | Emergency (ER) | payer BC ==
[~2023-03-06] VITALS: Ht 162.6 cm; Wt 68.6 kg
[~2023-03-06 07:23] MED LIST changes: +CLIN150C2 PO
[2023-03-06 07:25] VITALS: BP 140/92; PULSE 61; RESP 17; O2SAT 97
== END 2023-03-06 10:53 | disposition left against medical advice (07) ==
LOC: ER 07:23
DX: R22.31 Localized swelling, mass and lump, right upper limb (principal); Z53.21 Procedure and treatment not carried out due to patient leaving prior to being seen by health care provider
CPT/HCPCS: 99281